=== PATIENT | male | born 1990 ===

== ENCOUNTER 2017-10-11 19:51 | Emergency (ER) | payer SELFPAY ==
[2017-10-11 20:48] VITALS: BP 128/81; PULSE 102; RESP 20; TEMP 98.1; O2SAT 97
--- NOTE | 2017-10-11 21:54 | C.PDOC ---
History Of Present Illness 26 y/o male presents to the ED for evaluation of back pain and request for alcohol detox. Patient states he has been drinking beer daily for the past 3 months. He states his last use was 0900 today. He denies abdominal pain, nausea , vomiting, diarrhea, recent injuries. Time Seen by Provider: 10/11/17 21:30 Chief Complaint (Nursing): Substance Abuse History Per: Patient History/Exam Limitations: no limitations Onset/Duration Of Symptoms: Hrs Current Symptoms Are (Timing): Still Present Suicide/Self Injury Attempted (Context): None Modifying Factor(s): Alcohol Associated Symptoms: denies: Suicidal Thoughts, Suicidal Plan Involuntary Hold By: None Recent travel outside of the [place]: No Additional History Per: Patient Past Medical History Reviewed: Historical Data, Nursing Documentation, Vital Signs Vital Signs: Last Vital Signs Temp 98.1 F 10/11/17 20:45 Pulse 102 H 10/11/17 20:45 Resp 20 10/11/17 20:45 BP 128/81 10/11/17 20:45 Pulse Ox 97 10/11/17 22:09 - Medical History PMH: Gastritis Surgical History: No Surg Hx Family History: States: Unknown Family Hx - Social History Hx Alcohol Use: Yes Hx Substance Use: No Review Of Systems Gastrointestinal: Negative for: Nausea, Vomiting, Abdominal Pain Neurological: Positive for: Other (alcohol detox ) Physical Exam - Physical Exam Appears: Non-toxic, No Acute Distress Skin: Normal Color, Warm, Dry Head: Atraumatic, Normacephalic Eye(s): bilateral: Normal Inspection Oral Mucosa: Moist Neck: Supple Chest: Symmetrical, No Deformity, No Tenderness Cardiovascular: Rhythm Regular, No Murmur Respiratory: Normal Breath Sounds, No Rales, No Rhonchi, No Wheezing Extremity: Normal ROM, Capillary Refill (less than 2 seconds) Neurological/Psych: Oriented x3, Normal Speech, Normal Cognition Gait: Steady ED Course And Treatment O2 Sat by Pulse Oximetry: 97 (on RA) Pulse Ox Interpretation: Normal Progress Note: motrin PO administered. Medical Decision Making Medical Decision Making: alcohol abuse no s/s of withdrawal now no detox beds available now d/w Crisis @ bedside, will help w f/u as opt. Disposition Doctor Will See Patient In The: Office Counseled Patient/Family Regarding: Studies Performed, Diagnosis - Disposition Referrals: Alcoholics Anonymous [Outside] [facility] [Outside] [facility] [Outside] [facility]. [facility] [Outside] Disposition: HOME/ ROUTINE Disposition Time: 21:54 Condition: GOOD Additional Instructions: continue to seek outpatient detox availability as directed by our Crisis Evaluators. Sigue stevenson apoyo de buscar detox de alcohol jaden dirijido de la gente de Crisis Evaluators. Sigue con AA Instructions: Abuse of Alcohol (ED) Forms: [employer] (Jordanian) Print Language: SENEGALESE - Clinical Impression Clinical Impression: Alcohol abuse - Scribe Statement The provider has reviewed the documentation as recorded by the Scribe (Aspen Turner) Provider Attestation: All medical record entries made by the Scribe were at my direction and personally dictated by me. I have reviewed the chart and agree that the record accurately reflects my personal performance of the history, physical exam, medical decision making, and the department course for this patient. I have also personally directed, reviewed, and agree with the discharge instructions and disposition.
== END 2017-10-11 22:04 | disposition home or self-care (01) ==
LOC: C.ER 19:51
DX: F10.10 Alcohol abuse, uncomplicated (principal); Y90.9 Presence of alcohol in blood, level not specified

== ENCOUNTER 2018-07-11 10:12 | Emergency (ER) | payer SELFPAY ==
--- NOTE | 2018-07-11 10:17 | C.PDOC ---
History Of Present Illness 27 y/o male brought to ED by EMS for acute ETOH intoxication. At ED patient c/o left arm pain and intermittent nose bleeds which resolved 2 days ago and occured after picking nose. 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 He denies falling on his head or neck. No easy bruising or any other joint pain. No dark or bloody stool. No current nose bleeds. Patient admits to drinking 3 beers today. No other complaints at this time. No chest pain, sob or abdominal pain. No GI or complaints Time Seen by Provider: 07/11/18 10:16 Chief Complaint (Nursing): Upper Extremity Problem/Injury History Per: Patient, EMS History/Exam Limitations: intoxication Onset/Duration Of Symptoms: Days Current Symptoms Are (Timing): Still Present Past Medical History Reviewed: Historical Data, Nursing Documentation, Vital Signs - Medical History PMH: Gastritis Surgical History: No Surg Hx Family History: States: No Known Family Hx - Social History Hx Alcohol Use: Yes Hx Substance Use: No Review Of Systems Constitutional: Negative for: Fever, Chills Eyes: Negative for: Pain, Vision Change ENT: Negative for: Ear Pain, Ear Discharge, Nose Congestion, Mouth Pain, Mouth Swelling Cardiovascular: Negative for: Chest Pain Respiratory: Negative for: Cough, Shortness of Breath, Hemoptysis, SOB with Excertion, Pleuritic Pain, Sputum Gastrointestinal: Negative for: Nausea, Vomiting, Diarrhea, Constipation, Melena, Hematochezia Genitourinary: Negative for: Dysuria, Hematuria Musculoskeletal: Positive for: Arm Pain. Negative for: Back Pain Skin: Negative for: Rash Neurological: Negative for: Weakness, Numbness, Confusion, Seizures, Altered Mental Status, Headache Psych: Positive for: Other (ETOH abuse). Negative for: Suicidal ideation, Withdrawal Physical Exam - Physical Exam Appears: Well, Non-toxic, No Acute Distress Skin: Normal Color, Warm, Dry, No Diaphoretic, No Pale, No Rash, No Jaundice, No Mottled, No Cyanotic Head: Atraumatic, Normacephalic, No Tenderness, No Swelling, No Abrasion, No Laceration Eye(s): bilateral: Normal Inspection, PERRL, EOMI Ear(s): Bilateral: Normal Nose: Normal, No Flaring, No Discharge, No Epistaxis, No Deformity, No Tenderness, No Septal Hematoma Oral Mucosa: Moist Tongue: Normal Appearing, No Swelling, No Lesions Lips: Normal Appearing, No Swelling, No Contusion Teeth: Normal Dentition Throat: Normal, No Erythema Neck: Normal ROM, Supple, Other (no meningeal signs) Chest: Symmetrical, No Deformity, No Tenderness, No Ecchymosis, No Subcutaneous Emphysema Cardiovascular: Rhythm Regular Respiratory: Normal Breath Sounds, No Decreased Breath Sounds, No Accessory Muscle Use, No Rales, No Rhonchi, No Stridor, No Wheezing Gastrointestinal/Abdominal: Soft, No Tenderness, No Guarding, No Rebound Extremity: Normal ROM, Tenderness (left elbow), Capillary Refill (<2 seconds), No Deformity Extremity: Bilateral: Atraumatic, Normal ROM, Pelvis-Stable Pulses: Left Dorsalis Pedis: Normal, Right Dorsalis Pedis: Normal Neurological/Psych: Oriented x3, Normal Speech, Normal Cognition, Normal Cranial Nerves, No Cerebellar Signs, Normal Motor, Normal Sensation Gait: Steady Extremity: Right: No Drift, Left: No Drift, Upper: No Drift, Lower: No Drift ED Course And Treatment O2 Sat by Pulse Oximetry: 100 (RA) Pulse Ox Interpretation: Normal Medical Decision Making Medical Decision Makin yr old male w/ hx of etoh abuse presents intoxicated after drinking [facility] No appreciable trauma noted on exam. In NAD with steady gait. Pt notes fall 2d prior without LOC. No blood thinner usage. Neuro exam unremarkable. N/v intact in all extremities w/ out rashes or contusions. Plan: CT cervical spine, CT head w/o contrast, Left elbow xray ordered. Left elbow xray IMPRESSION: Questionable artifact versus minimally displaced fracture radial head. Clinical correlation recommended.. Repeat radiographs in 7-10 days could be performed to assess for occult fracture or which should become radiographically evident in this timeframe. Alternately, CT scan of the elbow could be performed. 1253 L arm to placed in sling given Xr findings. No pain on ROM. None erythematous or warm joint. no pain w/ passive or active rom. N/V intact distally Ct C spine unremarkable CT head unremarkable 1255 post spling placement good n/v status. Clinically sober, no signs of withdrawal. given instructions to f/u w/ ortho within 1 week. pt noted understanding walking well in NAD, clear for d/c home Disposition - Disposition Referrals: Jimmy Colon III, MD [Staff Provider] - [facility] [Outside] [facility] [Outside] [facility] [Outside] Disposition: HOME/ ROUTINE Disposition Time: 12:57 Condition: GOOD Additional Instructions: CAMELIA ROSA, thank you for letting us take care of you today. Your provider was Luis Antonio Quijano and you were treated for SUBSTANCE ABUSE AND ARM PAIN. The emergency medical care you received today was directed at your acute symptoms. If you were prescribed any medication, please fill it and take as directed. It may take several days for your symptoms to resolve. Return to the Emergency Department if your symptoms worsen, do not improve, or if you have any other problems. Please contact your doctor or call one of the physicians/clinics you have been referred to that are listed on the Patient Visit Information form that is included in your discharge packet. Bring any paperwork you were given at discharge with you along with any medications you are taking to your follow up visit. Our treatment cannot replace ongoing medical care by a primary care provider outside of the emergency department. Thank you for allowing the [facility] team to be part of your care today. If you had an X-Ray or CT scan: A Radiologist will review the ED reading if any change in treatment is needed we will contact you. If you had a blood, urine, or wound culture: It will take several days for the results, if any change in treatment is needed we will contact you. If you had an STI test: It will take 48 hours for the results. Please call after 1 week if you have not heard back. Instructions: Radius Fracture, Effects of Alcohol on Your Health Forms: [employer] (Haitian) Print Language: TANZANIAN - Clinical Impression Clinical Impression: Left radial head fracture, Alcohol abuse - Scribe Statement The provider has reviewed the documentation as recorded by the Augustine Hickman All medical record entries made by the Tamaraibe were at my direction and personally dictated by me. I have reviewed the chart and agree that the record accurately reflects my personal performance of the history, physical exam, medical decision making, and the department course for this patient. I have also personally directed, reviewed, and agree with the discharge instructions and disposition.
[2018-07-11 10:27] VITALS: RESP 18
--- NOTE | 2018-07-11 12:01 | RAD ---
Date of service: 07/11/2018 PROCEDURE: Radiographs of the left elbow. HISTORY: l elbow pain fall at work 2d COMPARISON: No prior. FINDINGS: BONES: There is slight irregularity of the cortex of the radial head which overlapping confluence of shadow artifact however the possibility of a minimally displaced fracture not excluded. JOINTS: Normal. No osteoarthritis. SOFT TISSUES: Normal. JOINT EFFUSION: None. OTHER FINDINGS: None IMPRESSION: Questionable artifact versus minimally displaced fracture radial head. Clinical correlation recommended.. Repeat radiographs in 7-10 days could be performed to assess for occult fracture or which should become radiographically evident in this timeframe. Alternately, CT scan of the elbow could be performed. Findings discussed with Dr. Quijano at approximately 11:55. a.m. with written down and read back verification
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
[2018-07-11 13:05] VITALS: BP 102/59; PULSE 75; TEMP 98
[2018-07-11 17:26] VITALS: O2SAT 100
== END 2018-07-11 13:30 | disposition home or self-care (01) ==
LOC: C.ER 10:12
DX: S52.122A Displaced fracture of head of left radius, initial encounter for closed fracture (principal); W19.XXXA Unspecified fall, initial encounter; Y99.0 Civilian activity done for income or pay; F10.10 Alcohol abuse, uncomplicated

== ENCOUNTER 2018-08-04 17:44 | Emergency (ER) | payer SELFPAY ==
[2018-08-04 17:58] VITALS: RESP 16; TEMP 97.8
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
[2018-08-04 20:51] VITALS: BP 129/85; PULSE 79
[2018-08-04 21:43] VITALS: O2SAT 99
--- NOTE | 2018-08-05 09:50 | RAD ---
Date of service: 08/04/2018 PROCEDURE: Radiographs of the Left Shoulder HISTORY: trauma COMPARISON: No prior. FINDINGS: BONES: Normal. No fracture. JOINTS: Normal. Glenohumeral and acromioclavicular joints preserved. No significant osteoarthritis. SOFT TISSUES: Normal. OTHER FINDINGS: Note made of a small calcified granuloma left upper lobe. IMPRESSION: No evidence of acute displaced fracture nor dislocation..
== END 2018-08-04 20:50 | disposition home or self-care (01) ==
LOC: C.ER 17:44
DX: S40.012A Contusion of left shoulder, initial encounter (principal); Y08.89XA Assault by other specified means, initial encounter; Y92.9 Unspecified place or not applicable; F10.129 Alcohol abuse with intoxication, unspecified

== ENCOUNTER 2018-08-25 21:52 | Emergency (ER) | payer SELFPAY ==
--- NOTE | 2018-08-25 22:39 | C.PDOC ---
History Of Present Illness 27 y/o M BIBEMS p/w alcohol intoxication. Patient states he drank beer tonight with his friends and had too much to drink. Denies other substance abuse. Denies pain, injury, vomiting, dyspnea, fever, or any other complaints. Time Seen by Provider: 08/25/18 22:10 Chief Complaint (Nursing): Substance Abuse Past Medical History Vital Signs: Last Vital Signs Temp 97.6 F 08/25/18 21:54 Pulse 66 08/25/18 21:54 Resp 16 08/25/18 21:54 BP 130/83 08/25/18 21:54 Pulse Ox 99 08/25/18 21:54 - Medical History PMH: Gastritis Family History: States: Unknown Family Hx - Social History Hx Alcohol Use: Yes Hx Substance Use: No - Immunization History Hx Tetanus Toxoid Vaccination: No Hx Influenza Vaccination: No Hx Pneumococcal Vaccination: No Review Of Systems Except As Marked, All Systems Reviewed And Found Negative. Constitutional: Negative for: Fever Cardiovascular: Negative for: Chest Pain Respiratory: Negative for: Shortness of Breath Physical Exam - Physical Exam Additional Physical Exam Comments: Gen: NAD. Alcohol on breath. Head: NC/AT Eyes: Constricted ENT: MMM Neck: No midline tenderness Chest: No tenderness CV: Regular rate Lungs: CTA b/l Abd: Soft, NT Back: No midline tenderness Extremities: FROM x 4. No tenderness or edema. No deformity Skin: No rash Neuro: Intoxicated ED Course And Treatment O2 Sat by Pulse Oximetry: 99 Medical Decision Making Medical Decision Making: Will observe for sobriety. Disposition - Disposition Disposition: HOME/ ROUTINE Disposition Time: 22:39 Condition: STABLE Instructions: Alcohol Abuse and Alcoholism (DC) - Clinical Impression Clinical Impression: Alcohol intoxication
[2018-08-26 05:22] VITALS: BP 113/64; PULSE 90; RESP 16; TEMP 98.2; O2SAT 98
== END 2018-08-26 05:29 | disposition home or self-care (01) ==
LOC: C.ER 21:52
DX: F10.129 Alcohol abuse with intoxication, unspecified (principal); Y90.9 Presence of alcohol in blood, level not specified

== ENCOUNTER 2019-01-03 02:03 | Emergency (ER) | payer SELFPAY ==
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
[2019-01-03 04:38] VITALS: RESP 18
[2019-01-03 05:28] VITALS: BP 135/79; PULSE 80; TEMP 97.9
[2019-01-03 05:35] VITALS: O2SAT 98
== END 2019-01-03 05:39 | disposition home or self-care (01) ==
LOC: C.ER 02:03
DX: F10.129 Alcohol abuse with intoxication, unspecified (principal)

== ENCOUNTER 2019-01-03 13:01 | Emergency (ER) | payer SELFPAY ==
[2019-01-03 13:10] VITALS: BP 133/86; PULSE 86; RESP 18; TEMP 97.9; O2SAT 96
--- NOTE | 2019-01-03 13:49 | C.PDOC ---
History Of Present Illness 28 y/o male presents via ambulance after he was found intoxicated at [facility]. Patient admits to drinking a lot of beer today. He was seen here last night for the same, and discharged home at 5:30am this morning. Patient offers no active complaints. He denies any SI or HI. No evidence of recent trauma or fall. Time Seen by Provider: 01/03/19 13:08 Chief Complaint (Nursing): Substance Abuse History Per: Patient History/Exam Limitations: no limitations Onset/Duration Of Symptoms: Days Current Symptoms Are (Timing): Still Present Modifying Factor(s): Alcohol Associated Symptoms: denies: Suicidal Thoughts, Suicidal Plan Past Medical History Reviewed: Historical Data, Nursing Documentation, Vital Signs Vital Signs: Last Vital Signs Temp 97.9 F 01/03/19 13:10 Pulse 86 01/03/19 13:10 Resp 18 01/03/19 13:10 BP 133/86 01/03/19 13:10 Pulse Ox 96 01/03/19 13:10 Primary Care Provider: FAMILY PROVIDER,NO - Medical History PMH: Gastritis Family History: States: Unknown Family Hx - Social History Hx Alcohol Use: Yes Hx Substance Use: No - Immunization History Hx Tetanus Toxoid Vaccination: (unk) Hx Influenza Vaccination: (unk) Hx Pneumococcal Vaccination: (unk) Review Of Systems Constitutional: Negative for: Fever Cardiovascular: Negative for: Chest Pain Respiratory: Negative for: Shortness of Breath Gastrointestinal: Negative for: Vomiting, Abdominal Pain Skin: Negative for: Lesions, Bruising Psych: Positive for: Other (ETOH intoxication). Negative for: Suicidal ideation Physical Exam - Physical Exam Appears: Non-toxic, No Acute Distress, Other (+Alcohol on breath) Skin: Warm, Dry Head: Atraumatic, Normacephalic Eye(s): bilateral: Normal Inspection, PERRL, EOMI Neck: Normal ROM Chest: Symmetrical Cardiovascular: Rhythm Regular, No Murmur Respiratory: Normal Breath Sounds, No Accessory Muscle Use Gastrointestinal/Abdominal: Soft, No Tenderness, No Distention Extremity: Bilateral: Atraumatic, Normal Color And Temperature Neurological/Psych: Oriented x3, Other (Slightly slurred speech, Patient awake and responsive to questions) ED Course And Treatment O2 Sat by Pulse Oximetry: 96 (RA) Pulse Ox Interpretation: Normal Medical Decision Making Medical Decision Making: Impression: 28 y/o intoxicated male BIBA for ETOH intoxication Plan: Patient is resting comfortably. VSS. Will monitor patient is discharge when clinically sober. BS FS is 143 18:00 On reevaluation patient is awake, alert, oriented x3, and now requesting to go home. Patient is ambulatory with steady gait. Plan is to discharge patient home. 18:10 Went to discharge patient, however patient already left without receiving discharge paperwork. Disposition Counseled Patient/Family Regarding: Diagnosis, Need For Followup - Disposition Disposition: HOME/ ROUTINE Disposition Time: 18:00 Condition: STABLE Forms: [employer] (Croatian) - POA Present On Arrival: None - Clinical Impression Clinical Impression: Alcohol abuse - Scribe Statement The provider has reviewed the documentation as recorded by the Augustine Oconnor Provider Attestation: All medical record entries made by the Tamaraibsudhakar were at my direction and personally dictated by me. I have reviewed the chart and agree that the record accurately reflects my personal performance of the history, physical exam, medical decision making, and the department course for this patient. I have also personally directed, reviewed, and agree with the discharge instructions and disposition.
== END 2019-01-03 18:40 | disposition home or self-care (01) ==
LOC: C.ER 13:01
DX: F10.129 Alcohol abuse with intoxication, unspecified (principal)

== ENCOUNTER 2019-01-04 11:22 | Emergency (ER) | payer SELFPAY ==
[2019-01-04 11:33] VITALS: BMI 27.4
[2019-01-04 11:44] VITALS: RESP 20; TEMP 98.1
--- NOTE | 2019-01-04 12:38 | C.PDOC ---
History Of Present Illness 28 y/o male is brought in by ambulance after being found intoxicated and sleeping in [facility]. As per EMS, when they started moving him, patient expressed pain in his left elbow. Upon arrival to the ER, patient is awake and alert but still intoxicated. Patient reports he does not remember what happened to his left elbow. Time Seen by Provider: 01/04/19 11:38 Chief Complaint (Nursing): Substance Abuse History Per: Patient History/Exam Limitations: no limitations Onset/Duration Of Symptoms: Hrs Current Symptoms Are (Timing): Still Present Past Medical History Reviewed: Historical Data, Nursing Documentation, Vital Signs Vital Signs: Last Vital Signs Temp 98.1 F 01/04/19 11:32 Pulse 80 01/04/19 11:32 Resp 20 01/04/19 11:32 BP 126/72 01/04/19 11:32 Pulse Ox 97 01/04/19 11:32 Primary Care Provider: Non [facility] Provider, - Medical History PMH: Gastritis Family History: States: No Known Family Hx - Social History Hx Alcohol Use: Yes Hx Substance Use: No - Immunization History Hx Tetanus Toxoid Vaccination: (unk) Hx Influenza Vaccination: (unk) Hx Pneumococcal Vaccination: (unk) Review Of Systems Except As Marked, All Systems Reviewed And Found Negative. Constitutional: Negative for: Fever, Chills Gastrointestinal: Negative for: Nausea, Vomiting Musculoskeletal: Positive for: Other (left elbow pain). Negative for: Neck Pain Psych: Positive for: Other (alcohol intoxication) Physical Exam - Physical Exam Appears: Non-toxic, No Acute Distress Skin: Warm, Dry Head: Atraumatic, Normacephalic Eye(s): bilateral: Normal Inspection Oral Mucosa: Moist Neck: Supple Extremity: Tenderness (tenderness to left elbow, mildly swollen), Swelling (swelling over olecranon area, diffuse tenderness), Other (Decreased ROM of elbow secondary to pain) Extremity: Bilateral: Normal Color And Temperature Neurological/Psych: Oriented x3, Normal Speech, Normal Motor, Normal Sensation ED Course And Treatment O2 Sat by Pulse Oximetry: 97 (RA) Pulse Ox Interpretation: Normal - Other Rad Elbow XR X-Ray: Read By Radiologist Interpretation: FINDINGS: BONES: Normal. No fracture. JOINTS: Normal. No osteoarthritis. SOFT TISSUES: Normal. JOINT EFFUSION: None. OTHER FINDINGS: None. IMPRESSION: No evidence of acute fracture or dislocation. Progress Note: Left elbow XR ordered. Patient was splinted with long arm posterior splint and arm sling by CP and checked by me. Patient referred to orthopedic clinic and discharged home. On d/c patient is A&O x 3, ambulating with steady gait. Disposition - Disposition Referrals: [facility] [Outside] Disposition: HOME/ ROUTINE Disposition Time: 12:36 Condition: STABLE Additional Instructions: Follow up in Orthopedic clinic within 2-3 days. Return to ED if feel worse. Instructions: Elbow Fracture (DC), Alcohol Abuse and Alcoholism (DC) Forms: [employer] (Romanian) Print Language: MAURITANIAN - Clinical Impression Clinical Impression: Alcohol intoxication, Elbow fracture, left - PA / DRY KILN OPERATOR / Resident Statement MD/DO has reviewed & agrees with the documentation as recorded. - Scribe Statement The provider has reviewed the documentation as recorded by the Scribe Tiffany Mandel All medical record entries made by the Scribe were at my direction and personally dictated by me. I have reviewed the chart and agree that the record accurately reflects my personal performance of the history, physical exam, medical decision making, and the department course for this patient. I have also personally directed, reviewed, and agree with the discharge instructions and disposition.
[2019-01-04 13:01] VITALS: BP 136/91; PULSE 98
[2019-01-04 13:16] VITALS: O2SAT 97
--- NOTE | 2019-01-04 15:11 | RAD ---
Date of service: 01/04/2019 PROCEDURE: Radiographs of the left elbow. HISTORY: ETOH, fall COMPARISON: No prior. TECHNIQUE: 3 views obtained. FINDINGS: BONES: Normal. No fracture. JOINTS: Normal. No osteoarthritis. SOFT TISSUES: Normal. JOINT EFFUSION: None. OTHER FINDINGS: None IMPRESSION: No evidence of acute fracture or dislocation.
== END 2019-01-04 13:08 | disposition home or self-care (01) ==
LOC: C.ER 11:22
DX: F10.129 Alcohol abuse with intoxication, unspecified (principal); Y90.9 Presence of alcohol in blood, level not specified; S42.402A Unspecified fracture of lower end of left humerus, initial encounter for closed fracture; X58.XXXA Exposure to other specified factors, initial encounter

== ENCOUNTER 2019-01-04 22:53 | Emergency (ER) | payer SELFPAY ==
[2019-01-04 22:54] VITALS: BMI 27.4
[2019-01-04 22:57] VITALS: O2SAT 97
[2019-01-04 23:44] VITALS: PULSE 90
--- NOTE | 2019-01-05 01:44 | C.PDOC ---
History Of Present Illness 28-year-old male is brought to the ED by ambulance from [facility] for acute alcohol intoxication. This visit is patient's 4th ED evaluation for alcohol intoxication within the past 48 hours. Patient does not offer any complaints at this time. No obvious injuries. Time Seen by Provider: 01/04/19 23:54 Chief Complaint (Nursing): Substance Abuse History Per: Patient, EMS History/Exam Limitations: intoxication Current Symptoms Are (Timing): Still Present Modifying Factor(s): Alcohol Additional History Per: Patient Past Medical History Reviewed: Historical Data, Nursing Documentation, Vital Signs Vital Signs: Last Vital Signs Temp 97.6 F 01/04/19 23:00 Pulse 90 01/04/19 23:00 Resp 16 01/04/19 23:00 BP 127/81 01/04/19 23:00 Pulse Ox 97 01/04/19 23:00 Primary Care Provider: FAMILY PROVIDER,NO - Medical History PMH: Anxiety, Depression, Gastritis Surgical History: No Surg Hx Family History: States: Unknown Family Hx - Social History Hx Alcohol Use: Yes Hx Substance Use: No - Immunization History Hx Tetanus Toxoid Vaccination: No (unk) Hx Influenza Vaccination: No (unk) Hx Pneumococcal Vaccination: No (unk) Review Of Systems Psych: Positive for: Other (EtOH intoxication ). Negative for: Suicidal ideation Physical Exam - Physical Exam Appears: Non-toxic, No Acute Distress, Other (thin, chronically intoxicated appearing, thin ) Skin: Normal Color, Warm, Dry Head: Atraumatic, Normacephalic Oral Mucosa: Moist, Other (alcohol on breath ) Neck: Supple Chest: Symmetrical, No Deformity, No Tenderness Respiratory: No Accessory Muscle Use Extremity: Normal ROM Neurological/Psych: Other (arousable to touch and verbal stimuli ) ED Course And Treatment O2 Sat by Pulse Oximetry: 97 (on RA ) Pulse Ox Interpretation: Normal Reevaluation Time: 05:01 Reassessment Condition: Improved (clinically sober, wants immediate d/c) Disposition Doctor Will See Patient In The: Office Counseled Patient/Family Regarding: Studies Performed, Diagnosis - Disposition Disposition: HOME/ ROUTINE Disposition Time: 05:01 Condition: GOOD Forms: [employer] (Omani) - Clinical Impression Clinical Impression: Alcohol abuse - Scribe Statement The provider has reviewed the documentation as recorded by the Scribe (Aspen Turner) Provider Attestation: All medical record entries made by the Scribe were at my direction and personally dictated by me. I have reviewed the chart and agree that the record accurately reflects my personal performance of the history, physical exam, medical decision making, and the department course for this patient. I have also personally directed, reviewed, and agree with the discharge instructions and disposition.
[2019-01-05 03:38] VITALS: BP 123/76; RESP 20; TEMP 98.6
== END 2019-01-05 05:10 | disposition home or self-care (01) ==
LOC: C.ER 22:53
DX: F10.129 Alcohol abuse with intoxication, unspecified (principal); Y90.9 Presence of alcohol in blood, level not specified

== ENCOUNTER 2019-01-31 19:33 | Emergency (ER) | payer SELFPAY ==
[2019-01-31 19:34] VITALS: BMI 27.4
[2019-01-31 19:37] VITALS: BP 130/84; PULSE 81; RESP 18; TEMP 98.1; O2SAT 100
--- NOTE | 2019-01-31 20:03 | C.PDOC ---
History Of Present Illness 28 y/o male is brought in by ambulance for public alcohol intoxication. Patient had many recent prior evaluations for same. Denies any physical complaints at this time. Time Seen by Provider: 01/31/19 20:02 Chief Complaint (Nursing): Substance Abuse History Per: Patient History/Exam Limitations: no limitations Onset/Duration Of Symptoms: Hrs Current Symptoms Are (Timing): Still Present Past Medical History Reviewed: Historical Data, Nursing Documentation, Vital Signs Vital Signs: Last Vital Signs Temp 98.1 F 01/31/19 19:36 Pulse 81 01/31/19 19:36 Resp 18 01/31/19 19:36 BP 130/84 01/31/19 19:36 Pulse Ox 100 01/31/19 19:36 Primary Care Provider: FAMILY PROVIDER,NO - Medical History PMH: Anxiety, Depression, Gastritis Family History: States: No Known Family Hx - Social History Hx Alcohol Use: Yes Hx Substance Use: No - Immunization History Hx Tetanus Toxoid Vaccination: No (unk) Hx Influenza Vaccination: No (unk) Hx Pneumococcal Vaccination: No (unk) Review Of Systems Except As Marked, All Systems Reviewed And Found Negative. Constitutional: Negative for: Fever, Chills Psych: Positive for: Other (alcohol intoxication) Physical Exam - Physical Exam Appears: Non-toxic, No Acute Distress, Other (disheveled, foul smelling) Skin: Warm, Dry Head: Normacephalic Eye(s): bilateral: Normal Inspection Oral Mucosa: Moist Neck: Supple Cardiovascular: Rhythm Regular, No Murmur Respiratory: Normal Breath Sounds, No Rales, No Rhonchi, No Wheezing Gastrointestinal/Abdominal: Soft, No Tenderness Extremity: Bilateral: Atraumatic, Normal Color And Temperature Neurological/Psych: Oriented x3 ED Course And Treatment O2 Sat by Pulse Oximetry: 100 (RA) Pulse Ox Interpretation: Normal Medical Decision Making Medical Decision Making: persistent alcohol abuse, no acute issues stable for d/c. Disposition Doctor Will See Patient In The: Office Counseled Patient/Family Regarding: Studies Performed, Diagnosis - Disposition Referrals: Alcoholics Anonymous [Outside] [facility] [Outside] [facility] [Outside] [facility] [Outside] [facility] [Outside] Disposition: HOME/ ROUTINE Disposition Time: 20:03 Condition: GOOD Instructions: Alcohol Abuse and Alcoholism (DC) Forms: [facility] ([place] Islander) Print Language: DJIBOUTIAN - Clinical Impression Clinical Impression: Alcohol abuse - Scribe Statement The provider has reviewed the documentation as recorded by the Tamaraibsudhakar Mandel Provider Attestation: All medical record entries made by the Tamaraibe were at my direction and personally dictated by me. I have reviewed the chart and agree that the record accurately reflects my personal performance of the history, physical exam, medical decision making, and the department course for this patient. I have also personally directed, reviewed, and agree with the discharge instructions and disposition.
== END 2019-01-31 20:11 | disposition home or self-care (01) ==
LOC: C.ER 19:33
DX: F10.10 Alcohol abuse, uncomplicated (principal); Y90.9 Presence of alcohol in blood, level not specified